=== PATIENT | male | born 1945 | race Caucasian/White ===

== ENCOUNTER 2017-11-03 21:07 | Inpatient (IN) | payer OTHER, MEDICARE ==
[~2017-11-03] VITALS: Ht 182.9 cm; Wt 115.2 kg
--- NOTE | ~2017-11-03 | EKG ---
[address] [place] [address] ELECTROCARDIOGRAM REPORT Name: AIDE GILBERT Room #: 216- DIS IN M.R.#: [id number] Admission: 11/03/17 Attend Phys: Moncho Larkin MD Discharge: 11/06/17 Date of : 45 Report #: [id number] THIS REPORT FOR: //name// [facility] Test Date: 2017-11-06 Test Time: 06:22:25 Pat Name: AIDE GILBERT Department: Room: 216 Gender: M Human Performance Technologist: WALLACE : 1945 Requested By: Darvin Sloan Order Number: [id number] MD: Darin Hammond Measurements Intervals [place] Rate: 80 P: 0 AR: 276 QRS: -55 QRSD: 104 T: 87 QT: 405 QTc: 468 Interpretive Statements Sinus rhythm Prolonged AR interval Abnormal R-wave progression, late transition Inferior infarct, old Baseline wander in lead(s) V5,V6 Compared to ECG 11/05/2017 10:49:00 Ectopic atrial rhythm no longer present Poor R-wave progression no longer present Myocardial infarct finding still present Electronically Signed On 11-06-2017 17:20:55 CDT by Darin Hammond [email or web address] <ELECTRONICALLY SIGNED> By: Darin Hammond MD 11/06/17 1720 1 1 Darin Hammond MD /EPI
--- NOTE | ~2017-11-03 | HC ---
[facility] [place] [address] CONSULTATION Name: AIDE GILBERT Room #: 216-P ADM IN M.R.#: [id number] Admission: 11/03/17 Attend Phys: Moncho Larkin MD Discharge: Date of : 45 Report #: [id number] THIS REPORT FOR: //name// CC: Alfonso Larkin REASON FOR CONSULTATION: Unstable angina. HISTORY OF PRESENT ILLNESS: The patient is a 71-year-old male with history of coronary artery disease status post CABG in 2001, stent to the circumflex in [address] Sloan. The patient was in the hospital on 08/26 for a non-ST segment elevation SD and underwent stent to the saphenous vein graft to obtuse marginal branch as well as another stent to the proximal circumflex. Last night, he presented after having chest heaviness that lasted approximately 30 minutes and was alleviated by taking multiple aspirin therapy. He denies shortness of breath, PND, orthopnea, presyncope or syncope. REVIEW OF SYSTEMS: Twelve-point review of system was performed and was negative other than what I mentioned above. PAST MEDICAL HISTORY: Includes: 1. Coronary artery disease. 2. CABG. 3. Recent stents with drug-eluting stents in August. 4. Atrial fibrillation, on Eliquis. 5. Hypertension. 6. Diabetes. 7. Hyperlipidemia. SOCIAL HISTORY: Does not smoke. FAMILY HISTORY: Noncontributory. ALLERGIES: None. MEDICATIONS: Have been reviewed and include Plavix and Eliquis. PHYSICAL EXAMINATION: VITAL SIGNS: Temperature 37.2, pulse 80, respiration 18, blood pressure 117/73, sats are 97%. GENERAL: No acute distress. HEENT: Oropharynx is clear. NECK: Supple, no thyromegaly. HEART: Regular rate and rhythm with no murmurs, rubs, gallops. LUNGS: Clear to auscultation bilaterally. ABDOMEN: Soft, nontender, nondistended, no hepatosplenomegaly. [facility] [address] [place] [place] [address] CONSULTATION Name: AIDE GILBERT [place] Room #: 216-P [facility] IN M.R.#: [id number] Admission: 11/03/17 Attend Phys: Moncho Larkin MD Discharge: Date of : 45 Report #: [id number] EXTREMITIES: No clubbing, cyanosis, edema, 2+ pulses throughout. NEUROLOGIC: Cranial nerves 2-12 are intact. LABORATORY DATA: CBC is normal. Chemistry shows creatinine 1.4. His initial troponin was 0.06 and increased to 0.12. His proBNP is 362. His EKG shows sinus rhythm with occasional bigeminal PVCs, but no ischemic changes. IMPRESSION: 1. Non-ST segment elevation myocardial infarction. 2. Unstable angina. 3. Coronary artery disease. 4. Prior coronary artery bypass graft. 5. Hypertension. 6. Hyperlipidemia. 7. Diabetes. 8. Paroxysmal atrial fibrillation. 9. Hypercoagulable state. SUMMARY: The patient is a 71-year-old with known coronary artery disease, presenting with unstable angina, chest pain with evidence of a non-ST segment elevation SD. As such, Dr. Sloan will see him in the morning and we will decide on medical management versus proceeding with a diagnostic cardiac catheterization and possible re-intervention. I am okay with him continuing with aspirin and Plavix and his Eliquis is on hold. <ELECTRONICALLY SIGNED> By: Dean Napier MD 11/05/17 1327 1047 1601 Dean Napier MD /nt
--- NOTE | ~2017-11-03 | EKG ---
[place] [address] [address] [facility] [place] [address] ELECTROCARDIOGRAM REPORT Name: AIDE GILBERT Room #: 216-P ADM IN M.R.#: [id number] Admission: 11/03/17 Attend Phys: Moncho Larkin MD Discharge: Date of : 45 Report #: [id number] THIS REPORT FOR: //name// [facility] Test Date: 2017-11-05 Test Time: 10:49:00 Pat Name: AIDE GILBERT Department: Room: 216 P Gender: M Community Support Professional: [place]VILLE : 1945 Requested By: Darvin Sloan Order Number: [id number] MD: Alfonso Sim Measurements Intervals [place] Rate: 76 P: -70 IA: 308 QRS: -54 QRSD: 105 T: 83 QT: 425 QTc: 478 Interpretive Statements Sinus or ectopic atrial rhythm Prolonged IA interval RSR' in V1 or V2, probably normal variant Inferior infarct, old Poor R wave progression Compared to ECG 08/29/2017 06:31:18 Ectopic atrial rhythm now present Premature ventricular complexes are no longer present Electronically Signed On 11-05-2017 17:13:44 CDT by Alfonso Sim [email or web address] <ELECTRONICALLY SIGNED> By: Alfonso Sim MD, [facility] 11/05/17 1713 1049 1049 Alfonso Sim MD, [facility] /EPI
--- NOTE | ~2017-11-03 | EKG ---
[place] [address] [facility] [employer] [place] [address] ELECTROCARDIOGRAM REPORT Name: AIDE GILBERT Room #: 216-P ADM IN M.R.#: [id number] Admission: 11/03/17 Attend Phys: Moncho Larkin MD Discharge: Date of : 45 Report #: [id number] THIS REPORT FOR: //name// [facility] ED Test Date: 2017-11-03 Test Time: 21:08:17 Pat Name: AIDE GILBERT Department: Room: Gender: M Mine Engineering Supervisor: STEVE : 1945 Requested By: Joao Santiago Order Number: [id number] MD: Alfonso Sim Measurements Intervals [place] Rate: 93 P: -73 VA: 239 QRS: -57 QRSD: 102 T: 85 QT: 360 QTc: 448 Interpretive Statements Sinus rhythm Occasional premature ventricular complexes Prolonged VA interval Inferior infarct, old Poor R wave progression Compared to ECG 08/29/2017 06:31:18 Ventricular premature complex(es) now present Electronically Signed On 11-05-2017 16:54:19 CDT by Alfonso Sim [email or web address] <ELECTRONICALLY SIGNED> By: Alfonso Sim MD, [facility] 11/05/17 1654 07 07 Alfonso Sim MD, [facility] /EPI
--- NOTE | ~2017-11-03 | CATHLAB ---
[facility] [address] [address] INVASIVE PROCEDURE REPORT Name: AIDE GILBERT Room #: 216-P [facility] IN M.R.#: [id number] Admission: 11/03/17 Attend Phys: Moncho Larkin, Discharge: Date of : 45 Date of Service: 11/05/17 1836 Report #: [id number] THIS REPORT FOR: //name// APPROVED REPORT Study performed: 11/05/2017 07:33:09 Patient Details Patient Status: In-Patient Room #: The patient is a 71 year-old male Event Personnel Darvin Sloan Reflexologist, Adonis Olea Mahmood, Amber Monitor, Cameron Francis RN Procedures Performed Art Access - R femoral artery* Left Heart Cath Coronaries, Bypass Grafts [id number] LHCCORCABG PTCA Single Vessel CIRC [id number] PCISINGLE Hemostasis w/ Mynx Indication Chest pain Procedure Narrative The patient was brought urgently to the Cardiac Catheterization Laboratory and was prepped and draped in a sterile manner. The Right Groin^ was infiltrated with 1% Lidocaine subcutaneous anesthesia. A PINNACLE 6FR Sheath #[id number] sheath was inserted into the RFA^. Coronary angiography was performed using coronary diagnostic catheters. The right coronary system was accessed and visualized with a JR 4 catheter. The left coronary system was accessed and visualized with a JL 4 catheter. The left ventricle was accessed and visualized with a Pigtail catheter. Left ventriculogram was performed in PEARCE projection. Closure device was deployed with a 6 Fr Mynx. The patient tolerated the procedure well and there were no complications associated with the procedure. There was no hematoma. Intraoperative Conscious Sedation Sedation start time: 08:02 Case end Time: 08:42 Fentanyl 50 mcg Versed 2 mg Fluoro Time: 6.26 minutes Dose: DAP 8928.80 cGycm2 1129 mGy Contrast Type and Amount: Visipaque 165 ml [facility] [place] [address] INVASIVE PROCEDURE REPORT Name: AIDE GILBERT SACHI Room #: 216-P [facility] IN M.R.#: [id number] Admission: 11/03/17 Attend Phys: Moncho Larkin, Discharge: Date of : 45 Date of Service: 11/05/17 1836 Report #: [id number] Hemodynamics The aortic pressure is 166/87 mmHg with a mean of 117 mmHg. The left ventricular pressure is 154/16 mmHg with a mean of mmHg. The left ventricular end diastolic pressure is 25 mmHg. PCI Technique Lesion Percutaneous coronary intervention was performed on the proximal circumflex artery segment. A LAUNCHER 6FR EBU 4 #[id number] Guide Catheter was used to engage the ostium. A Luge Wire .014 x 182CM #[id number] Interventional Guidewire was used to cross the lesion. BALLOON DILATION A Balloon catheter Sprinter OTW 2.5 x 12 #[id number] was inserted and inflated up to 18.00atm for 38seconds. POST STENT DEPLOYMENT BALLOON DILATION A Balloon catheter Euphora NC RX 3.0 x 12 #[id number] was inserted and inflated up to 24.00atm for 55seconds. POST STENT DEPLOYMENT BALLOON DILATION A Balloon catheter TREK NC RX 3.25 X 12 #[id number] was inserted and inflated up to 24.00atm for 60seconds. Conclusion #1 successful PTCA of in-stent restenosis and a ostial proximal circumflex artery moderately calcified 95% to 0% with a noncompliant 3.25 mm balloon postdilated 3.5 mm KILO grade 3 flow. #2 the left main is moderately diseased and calcified giving rise to an LAD which occludes and the circumflex artery which was intervened on. #3 the proximal circumflex OM is occluded #4 SVG to the first OM previously placed stents with mild in-stent restenosis in the graft stents filling a moderate size more proximal OM system this is anatomically dominant vessel. The distal OM is filled via the telida circumflex that was dilated as noted above #5 the telida right is nondominant and essentially occluded #6 ROSS to LAD is intact filling a moderately diseased distal LAD. #7 normal left ventricular size and systolic function EF 60% Recommendations and plan: Continue aggressive risk factor modification dual antiplatelet therapy will switch to generic Effient. If this restenosis would utilize a different medicated [facility] [address] [place] [address] INVASIVE PROCEDURE REPORT Name: AIDE GILBERT Room #: 216-P [facility] IN M.R.#: [id number] Admission: 11/03/17 Attend Phys: Moncho Larkin, Discharge: Date of : 45 Date of Service: 11/05/171835 Report #: [id number] stent. I did not add more metal to this proximal OM segment but dilated to larger and higher atmospheres. <ELECTRONICALLY SIGNED> By: Darvin Sloan MD, FACC 11/05/171835 35 35 Darvin Sloan MD, FACC /INF
[~2017-11-03 21:07] MED LIST: ACETAMINOPHEN325 M1 PO; ADULT LOW DOSE81 MG PO; ALTACE 1.25 M1.25 M1; ALTACE 1.25 M1.25 M1 PO; ATORVASTATIN CA40 MG PO; AZITHROMYCIN 2250 MG PO; BAYER CHEWABLE81 MG PO; CEFDINIR300 MG PO; CLOPIDOGREL75 MG PO; COLACE100 MG PO; ELIQUIS5 MG PO; FLAX OIL1000 MG PO; GLUCOPHAGE1000 MG PO; GLUCOPHAGE500 MG; HYDROCHLOROTH12.5 MG; HYDROCHLOROTH12.5 MG PO; LEVEMIR; LEVEMIR SUBQ; LOPRESSOR100 MG; LOPRESSOR100 MG PO; LOPRESSOR25 PO; METOPROLOL SUCC50 MG PO; MULTAQ400 MG PO; NORVASC10 MG PO; NOVOLIN N100 UNIT/1 SUBQ; NOVOLOG100 UNIT/1; PLAVIX 75 MG TA75 M1; PLAVIX 75 MG TA75 M1 PO; RANEXA500 MG PO; VICTOZA0.6 MG/0.1 SUBQ; VITAMIN D2000 UNIT PO; XARELTO20 MG PO; ZETIA10 MG; ZETIA10 MG PO
[2017-11-03 21:28] VITALS: BP 130/78
[2017-11-03 21:51] LABS: ABSOLUTE NEUTROPHILS 2.1 thou/uL (1.4-8.2); EOSINOPHILS 1.3 % (0.0-3.0); HEMATOCRIT 38.2 % (42.0-52.0); HEMOGLOBIN 13.6 gm/dL (14.0-18.0); LYMPHOCYTES 23.2 % (24.0-44.0); MCH 33.2 pg (26.0-34.0); MCHC 35.6 g/dL (28.0-37.0); MCV 93.3 fL (80.0-100.0); MONOCYTES 7.5 % (1.0-8.0); PLATELET COUNT 149 thou/uL (150-400); RBC 4.09 mil/uL (4.50-6.00); RDW 16.2 % (10.5-14.5); WBC 3.2 thou/uL (4.0-11.0)
[2017-11-03 21:53] LABS: ANION GAP 8 mmol/L (7-16); BUN 18 mg/dL (7-18); CHLORIDE 102 mmol/L (98-107); CO2 29 mmol/L (21-32); CREATININE 1.4 mg/dL (0.7-1.3); GLUCOSE 206 mg/dL (74-106); POTASSIUM 4.4 mmol/L (3.5-5.1); SODIUM 139 mmol/L (136-145)
[2017-11-03 22:02] LABS: ALBUMIN 3.8 g/dL (3.4-5.0); SGOT 26 U/L (15-37); SGPT 35 U/L (30-65); TOTAL BILIRUBIN 0.7 mg/dL (<0.1-1.0); TOTAL PROTEIN 7.3 g/dL (6.4-8.2); TROPONIN-I <0.06 ng/mL (<0.06)
[2017-11-03] MEDS ORDERED: LEVEMIR FL100 UNIT/2 SUBQ (23:53)
[2017-11-03 23:55] VITALS: BP 158/97
[2017-11-04 00:30] VITALS: BP 126/80
[2017-11-04 03:57] VITALS: BP 97/57
[2017-11-04 08:03] VITALS: BP 117/73
[2017-11-04 12:39] VITALS: BP 114/72
[2017-11-04 16:15] VITALS: BP 138/82
[2017-11-04 19:46] VITALS: BP 136/78
[2017-11-05 03:35] VITALS: BP 114/71
[2017-11-05 11:16] VITALS: BP 132/81
[2017-11-05 14:03] VITALS: BP 140/65
[2017-11-05 15:13] VITALS: BP 133/49
[2017-11-05 20:15] VITALS: BP 125/63
[2017-11-06 00:22] VITALS: BP 93/49
[2017-11-06 02:36] LABS: HEMATOCRIT 35.8 % (42.0-52.0); HEMOGLOBIN 12.8 gm/dL (14.0-18.0); MCH 33.3 pg (26.0-34.0); MCHC 35.6 g/dL (28.0-37.0); MCV 93.5 fL (80.0-100.0); RBC 3.83 mil/uL (4.50-6.00); RDW 16.4 % (10.5-14.5); WBC 2.9 thou/uL (4.0-11.0)
[2017-11-06 02:49] LABS: CALCIUM 8.7 mg/dL (8.5-10.1); POTASSIUM 3.8 mmol/L (3.5-5.1); TROPONIN-I 0.54 ng/mL (<0.06)
[2017-11-06 04:06] VITALS: BP 104/60
[2017-11-06] MEDS ORDERED: EFFIENT10 MG PO (07:14)
[2017-11-06 07:51] VITALS: BP 127/84
[2017-11-06 09:21] VITALS: BP 127/84
== END 2017-11-06 10:01 | disposition home or self-care (01) | DRG 246 ==
LOC: ER 21:07 → 2N 23:11 → EROBS 23:11 → 2N 11-04 00:19 → ENTRNSPT 11-06 10:02 → EDTRNSPTSTS 11-06 10:05
PROVIDERS: Emergency Medicine; Internal Medicine Cardiovascular Disease
PROC: B2151ZZ Fluoroscopy of Left Heart using Low Osmolar Contrast (ICD-10-PCS; principal; 2017-11-05)
PROC: 027034Z Dilation of Coronary Artery, One Artery with Drug-eluting Intraluminal Device, Percutaneous Approach (ICD-10-PCS; principal; 2017-11-05)
PROC: B2111ZZ Fluoroscopy of Multiple Coronary Arteries using Low Osmolar Contrast (ICD-10-PCS; principal; 2017-11-05)
PROC: 4A023N7 Measurement of Cardiac Sampling and Pressure, Left Heart, Percutaneous Approach (ICD-10-PCS; principal; 2017-11-05)
PROC: B2121ZZ Fluoroscopy of Single Coronary Artery Bypass Graft using Low Osmolar Contrast (ICD-10-PCS; principal; 2017-11-05)
DX: I21.4 Non-ST elevation (NSTEMI) myocardial infarction (principal); E43 Unspecified severe protein-calorie malnutrition; D68.59 Other primary thrombophilia; I25.110 Atherosclerotic heart disease of native coronary artery with unstable angina pectoris; I10 Essential (primary) hypertension; I48.0 Paroxysmal atrial fibrillation; E11.9 Type 2 diabetes mellitus without complications; E78.5 Hyperlipidemia, unspecified; I25.2 Old myocardial infarction; Z95.1 Presence of aortocoronary bypass graft; Z95.5 Presence of coronary angioplasty implant and graft; Z79.01 Long term (current) use of anticoagulants; Y92.89 Other specified places as the place of occurrence of the external cause; Z79.02 Long term (current) use of antithrombotics/antiplatelets; Z79.4 Long term (current) use of insulin; Z79.899 Other long term (current) drug therapy; Z82.49 Family history of ischemic heart disease and other diseases of the circulatory system
CPT/HCPCS: 10081

== ENCOUNTER 2018-02-03 11:32 | Inpatient (IN) | payer OTHER, MEDICARE ==
[~2018-02-03] VITALS: Ht 182.9 cm; Wt 117.9 kg
--- NOTE | ~2018-02-03 | EKG ---
[address] [place] [address] ELECTROCARDIOGRAM REPORT Name: AIDE GILBERT Room #: 170-9 ADM IN M.R.#: [id number] Admission: 02/03/18 Attend Phys: Gabriel Quinonez MD Discharge: Date of : 45 Report #: [id number] THIS REPORT FOR: //name// [facility] ED Test Date: 2018-02-03 Test Time: 11:44:44 Pat Name: AIDE GILBERT Department: Room: 170 Gender: M Supervisor Weaving: KKODJOVI : 1945 Requested By: Corina Combs Order Number: [id number] MD: Dean Napier Measurements Intervals [place] Rate: 55 P: 234 HI: 273 QRS: -17 QRSD: 106 T: 150 QT: 389 QTc: 372 Interpretive Statements Sinus or ectopic atrial rhythm Atrial premature complexes Prolonged HI interval Inferior infarct, old Anteroseptal infarct, age indeterminate Lateral leads are also involved Compared to ECG 11/06/2017 06:22:25 Ectopic atrial rhythm now present Atrial premature complex(es) now present Sinus rhythm no longer present Myocardial infarct finding still present Electronically Signed On 02-03-2018 13:33:46 CDT by Dean Napier [email or web address] <ELECTRONICALLY SIGNED> By: Dean Napire MD 02/03/18 1333 1144 1144 Dean Napier MD /EPI
--- NOTE | ~2018-02-03 | 2DMMODE ---
[facility] [address] [place] [address] 2 D/M-MODE ECHOCARDIOGRAM Name: AIDE GILBERT [place] Room #: 210-P ADM IN M.R.#: [id number] Admission: 02/03/18 Attend Phys: Gabriel Quinonez MD Discharge: Date of : 45 Date of Service: 02/04/18 0949 Report #: [id number] THIS REPORT FOR: //name// APPROVED REPORT Study performed: 02/04/2018 08:29:04 EXAM: Comprehensive 2D, Doppler, and color-flow Echocardiogram Patient Location: Echo lab Room #: 210 Status: routine BSA: 2.38 HR: 75 bpm BP: 104/71 mmHg Rhythm: Irregular Other Information Study Quality: Adequate Indications NSTEMI. Hx: [place], stent, CABG, HTN, HLP, DM. 2D Dimensions RVDd: 48.46 mm IVSd: 9.91 (7-11mm) LVOT Diam: 24.46 (18-24mm) LVDd: 59.99 mm PWd: 11.87 (7-11mm) Ascending Ao: 32.89 (22-36mm) LVDs: 49.47 (25-40mm) Aortic Root: 41.04 mm Volumes Left Atrial Volume (Systole) Single Plane 4CH: 94.30 mL Single Plane 2CH: 69.58 mL LA ESV Index: 36.00 mL/m2 Aortic Valve AoV Peak Law.: 1.01 m/s AO Peak Gr.: 4.06 mmHg LVOT Max P.91 mmHg LVOT Max V: 0.85 m/s MATTHEW Vmax: 3.97 cm2 Mitral Valve MV Decel. Time: 114.97 ms MV E Max Law.: 1.18 m/s IVRT: 64.59 ms [facility] [address] [place] [address] 2 D/M-MODE ECHOCARDIOGRAM Name: GILBERTAIDE [place] Room #: 210-[facility] IN M.R.#: [id number] Admission: 02/03/18 Attend Phys: Gabriel Quinonez MD Discharge: Date of : 45 Date of Service: 02/04/18 0949 Report #: [id number] Pulmonary Valve PV Peak Law.: 1.17 m/s PV Peak Gr.: 5.52 mmHg Pulmonary Vein P Vein S: 0.45 m/s P Vein D: 0.74 m/s P Vein S/D Ratio: 0.61 Tricuspid Valve TR Peak Law.: 3.07 m/s RAP Estimate: 10.00 mmHg TR Peak Gr.: 37.71 mmHg PA Pressure: 48.00 mmHg Left Ventricle Left ventricle is mildly dilated. Regional wall motion abnormalities are noted with at least moderate septal hypoperfusion There is normal left ventricular wall thickness. Left ventricular systolic function is moderately decreased. LVEF is 35%. This study is not technically sufficient to allow evaluation of the LV diastolic function. Right Ventricle Right ventricle is dilated. The right ventricular systolic function is normal. Atria Left atrium is mildly dilated. Right atrium is moderately dilated. Aortic Valve The Aortic valve is mildly sclerotic. Trace to mild aortic regurgitation. There is no aortic valvular stenosis. Mitral Valve Mitral valve leaflets are mildly thickened. Mild mitral annular calcification. Mild to moderate mitral regurgitation. No evidence of mitral valve stenosis. Tricuspid Valve The tricuspid valve is normal in structure. Moderate tricuspid regurgitation. Estimated PAP is 45-50mmHg. Pulmonic Valve The pulmonary valve is normal in structure. Mild pulmonic regurgitation. [facility] [address] [place] [address] 2 D/M-MODE ECHOCARDIOGRAM Name: AIDE GILBERT [place] Room #: 210-P ADM IN M.R.#: [id number] Admission: 02/03/18 Attend Phys: Gabriel Quinonez MD Discharge: Date of : 45 Date of Service: 02/04/18 0949 Report #: [id number] Great Vessels Aortic root is mildly dilated. The ascending aorta is normal in size. IVC is dilated and collapses <50% with inspiration. Pericardium There is no pericardial effusion. <Conclusion> Left ventricle is mildly dilated. LVEF is 35%. Regional wall motion abnormalities are noted with at least moderate septal hypoperfusion Right ventricle is dilated. Left atrium is mildly dilated. Right atrium is moderately dilated. The Aortic valve is mildly sclerotic. Trace to mild aortic regurgitation. Mitral valve leaflets are mildly thickened. Mild mitral annular calcification. Mild to moderate mitral regurgitation. The tricuspid valve is normal in structure. Moderate tricuspid regurgitation. Estimated PAP is 45-50mmHg. The pulmonary valve is normal in structure. Mild pulmonic regurgitation. There is no pericardial effusion. <ELECTRONICALLY SIGNED> By: Paul Davis MD 02/04/1849 8 8 Paul Davis MD /INF
--- NOTE | ~2018-02-03 | HC ---
[facility] [place] [address] CONSULTATION Name: AIDE GILBERT Room #: 210-P [facility] IN M.R.#: [id number] Admission: 02/03/18 Attend Phys: Moncho Larkin MD Discharge: 02/05/18 Date of : 45 Report #: [id number] THIS REPORT FOR: //name// CC: ERROL Larkin DATE OF SERVICE: 02/05/2018 HISTORY OF PRESENT ILLNESS: This patient is seen in consultation at the request for thrombocytopenia. He was admitted emergently through the Emergency Room with complaints of worsening shortness of breath and a known history of prior coronary artery disease and recent stenting. He most recently had a stent placed to the SVG by his heel gouger. When admitted, he was placed on heparin and has recently been on Plavix and Eliquis, which have been held. In looking at his recent hospitalizations, his white count in November was 2900 with a hemoglobin of 12.8 g and a platelet count of 129,000. 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 A bone marrow in June 2014 showed 40% monoclonal kappa plasma cells and a mildly hypercellular bone marrow. He had documented lytic bone lesions and received Zometa in conjunction with induction Velcade, Revlimid and dexamethasone. 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 In the winter, he was noted to have pancytopenia and his Revlimid dosing was reduced and subsequently stopped on 05/23/2017. He had a bone marrow this summer in October, which showed no evidence of myeloma in followup with Dr. Errol Ramirez. REVIEW OF SYSTEMS: Positive for worsening exertional dyspnea along with his recent chest discomfort. He denies any known blood loss. He denies any sweats, chills, fevers or weight loss. SOCIAL HISTORY: He is retired and denies any illicit drug use. FAMILY HISTORY: Negative for multiple myeloma. PAST MEDICAL HISTORY: Significant also for diabetes and medically managed hypertension in addition to his atherosclerotic cardiovascular disease. [facility] [address] [place] [address] CONSULTATION Name: AIDE GILBERT [place]ACHI Room #: 210-P [facility] IN M.R.#: [id number] Admission: 02/03/18 Attend Phys: Moncho Larkin MD Discharge: 02/05/18 Date of : 45 Report #: [id number] PHYSICAL EXAMINATION: GENERAL: Shows him to be alert. His and grandsons were present. HEENT: Normocephalic. His mouth is clear. NECK: Supple. CHEST: Clear. CARDIOVASCULAR: Normal S1, S2. ABDOMEN: Shows umbilical hernia. EXTREMITIES: No clubbing, cyanosis, edema. NEUROLOGIC: No focal localizing signs. PSYCHIATRIC: Not agitated or confused. ASSESSMENT: Worsening pancytopenia. PLAN: On review, his platelets were modestly reduced this summer and now have progressively declined to the 30,000 range along with a hemoglobin of 8 g and a white count of 1800. I have recommended that he undergo bone marrow aspiration biopsy for further evaluation. He wishes to be transferred to [facility], and I am happy to help arrange. He did have a electrophoresis and NILES drawn, which are pending at the time of this dictation in addition to LDH. His current retics are reduced indicating hypoproliferative state. Thanks for asking us to be involved in his care. <ELECTRONICALLY SIGNED> By: Kiah Anthony MD 02/16/18 1032 1128 0210 Kiah Anthony MD /nt
[~2018-02-03 11:32] MED LIST changes: +EFFIENT10 MG PO; +LEVEMIR FL100 UNIT/2 SUBQ
[2018-02-03 11:37] VITALS: BP 162/87
[2018-02-03 12:17] LABS: WBC 2.1 thou/uL (4.0-11.0)
[2018-02-03 12:19] LABS: HEMATOCRIT 23.4 % (42.0-52.0); HEMOGLOBIN 8.4 gm/dL (14.0-18.0); MCH 34.7 pg (26.0-34.0); MCHC 35.9 g/dL (28.0-37.0); MCV 96.6 fL (80.0-100.0); RBC 2.42 mil/uL (4.50-6.00)
[2018-02-03 12:27] LABS: CALCIUM 9.3 mg/dL (8.5-10.1); CREATININE 1.4 mg/dL (0.7-1.3); POTASSIUM 4.3 mmol/L (3.5-5.1)
[2018-02-03] MEDS ORDERED: FLAX SEED OIL1000 MG PO (12:32)
[2018-02-03] MEDS ORDERED: ELIQUIS5 MG PO (12:33)
[2018-02-03 12:35] LABS: ALBUMIN 2.9 g/dL (3.4-5.0); TOTAL BILIRUBIN 0.5 mg/dL (<0.1-1.0); TOTAL PROTEIN 6.8 g/dL (6.4-8.2)
[2018-02-03 12:37] LABS: TROPONIN-I 1.94 ng/mL (<0.06)
[2018-02-03 12:38] LABS: APTT 29.7 Seconds (24.5-32.8); D-DIMER 1.73 ug/mLFEU (0.19-0.50); INR 1.1; PROTIME 11.4 Seconds (9.3-11.4)
[2018-02-03] MEDS ORDERED: RANEXA500 MG PO (12:39)
[2018-02-03] MEDS ORDERED: ZANTAC 150MG T150 MG PO (12:39)
[2018-02-03] MEDS ORDERED: PROTONIX40 M1 PO (12:39)
[2018-02-03 13:10] VITALS: BP 103/58
[2018-02-03 13:10] LABS: ABSOLUTE NEUTROPHILS 1.2 thou/uL (1.4-8.2); ANISOCYTOSIS 2+; MACROCYTES 1+; METAMYELOCYTES 1 %; MICROCYTES 1+; PLATELET COUNT 33 thou/uL (150-400); PLATELET ESTIMATE DECREASED; POLYCHROMASIA SLIGHT
[2018-02-03 13:11] LABS: HYPOCHROMASIA 1+
[2018-02-03 13:49] VITALS: BP 112/69
[2018-02-03 14:14] VITALS: BP 112/77
[2018-02-03 20:00] VITALS: BP 99/59
[2018-02-03 20:23] VITALS: BP 99/59
[2018-02-04] VITALS (7 sets, daily range): BP systolic 92–134; BP diastolic 61–79
[2018-02-04 07:03] LABS: CHOLESTEROL 91 mg/dL (<200); HDL CHOLESTEROL 40 mg/dL (>40); LDL CHOLESTEROL 39 mg/dL (<100); TC:HDL 2.3 Ratio (Not establshd); TRIGLYCERIDE 61 mg/dL (<150); VLDL 12 mg/dL (<40)
[2018-02-04 14:45] LABS: HEMATOCRIT 23.2 % (42.0-52.0); HEMOGLOBIN 8.1 gm/dL (14.0-18.0)
[2018-02-04 14:47] LABS: MCH 34.2 pg (26.0-34.0); MCHC 34.9 g/dL (28.0-37.0); MCV 97.9 fL (80.0-100.0); RBC 2.37 mil/uL (4.50-6.00); RDW 15.8 % (10.5-14.5)
[2018-02-04 14:48] LABS: WBC 1.8 thou/uL (4.0-11.0)
[2018-02-04 17:57] LABS: OBSERVED RETIC COUNT 2.1 % (0.6-2.6)
[2018-02-04 18:43] LABS: CALCIUM 8.5 mg/dL (8.5-10.1); CREATININE 1.3 mg/dL (0.7-1.3); POTASSIUM 4.4 mmol/L (3.5-5.1); TOTAL BILIRUBIN 0.8 mg/dL (<0.1-1.0); TOTAL PROTEIN 6.3 g/dL (6.4-8.2)
[2018-02-05 05:08] VITALS: BP 107/69
[2018-02-05 06:42] LABS: HEMOGLOBIN 7.9 gm/dL (14.0-18.0)
[2018-02-05 06:44] LABS: HEMATOCRIT 22.3 % (42.0-52.0); MCH 34.6 pg (26.0-34.0); MCHC 35.5 g/dL (28.0-37.0); MCV 97.5 fL (80.0-100.0); PLATELET COUNT 22 thou/uL (150-400); RBC 2.29 mil/uL (4.50-6.00); RDW 15.9 % (10.5-14.5)
[2018-02-05 06:47] LABS: WBC 1.3 thou/uL (4.0-11.0)
[2018-02-05 07:18] VITALS: BP 138/85
[2018-02-05 08:41] LABS: ABSOLUTE NEUTROPHILS 0.7 thou/uL (1.4-8.2); NUCLEATED RBCS 1 /100WBC
[2018-02-05 08:42] LABS: ANISOCYTOSIS 1+; HYPOCHROMASIA 2+; LARGE PLATELETS MANY; PLATELET ESTIMATE MARKEDLY DECREASED
== END 2018-02-05 11:42 | disposition short-term general hospital (02) | DRG 280 ==
LOC: ER 11:32 → 2N 12:58 → EROBS 12:58 → 2N 13:46 → ENTRNSPT 02-05 11:24 → EDTRNSPTSTS 02-05 11:30 → 2N 02-05 11:42
PROVIDERS: Hospitalist; Internal Medicine Hematology & Oncology; Nurse Practitioner Adult Health; Physician Assistant
DX: I21.4 Non-ST elevation (NSTEMI) myocardial infarction (principal); E43 Unspecified severe protein-calorie malnutrition; Z94.84 Stem cells transplant status; D61.818 Other pancytopenia; D68.59 Other primary thrombophilia; I10 Essential (primary) hypertension; D64.9 Anemia, unspecified; I25.10 Atherosclerotic heart disease of native coronary artery without angina pectoris; K21.9 Gastro-esophageal reflux disease without esophagitis; E78.00 Pure hypercholesterolemia, unspecified; I48.0 Paroxysmal atrial fibrillation; R00.1 Bradycardia, unspecified; E11.9 Type 2 diabetes mellitus without complications; E78.5 Hyperlipidemia, unspecified; Z95.1 Presence of aortocoronary bypass graft; Z95.5 Presence of coronary angioplasty implant and graft; Z82.49 Family history of ischemic heart disease and other diseases of the circulatory system; I25.2 Old myocardial infarction; Z79.84 Long term (current) use of oral hypoglycemic drugs; Z79.4 Long term (current) use of insulin; Z79.899 Other long term (current) drug therapy; Z85.820 Personal history of malignant melanoma of skin; Z92.21 Personal history of antineoplastic chemotherapy; Z68.35 Body mass index [BMI] 35.0-35.9, adult
CPT/HCPCS: 10081